=== PATIENT | male | born 1955 | race Caucasian/White ===

== ENCOUNTER → 2017-03-23 | Outpatient (CLI) | payer OTHER ==
[~2017-03-23] MED LIST: LEVO25TA PO; NAPR250T2 PO; VENL1CAP92 PO
[2017-03-23 18:11] LABS: ALT/SGPT 22 U/L (12-78); BLOOD UREA NITROGEN 15 mg/dl (7-18); BUN/CREATININE RATIO 14.7 (10-20); CALCIUM 8.6 mg/dl (8.5-10.1); CARBON DIOXIDE 26 mmol/L (21-32); CHLORIDE 107 mmol/L (98-107); CHOLESTEROL 134 mg/dl (0-200); GLUCOSE 88 mg/dl (70-99); POTASSIUM 4.2 mmol/L (3.5-5.1); SODIUM 139 mmol/L (136-145)
[2017-03-23 18:22] LABS: ALKALINE PHOSPHATASE 89 U/L (45-117); AST/SGOT 20 U/L (15-37); HDL CHOLESTEROL 44 mg/dl; LDL CHOLESTEROL CALCULATED 51 mg/dl; TRIGLYCERIDES 195 mg/dl (0-150); VERY LOW DENSITY LIPOPROT CALC 39 mg/dl
== END | disposition home or self-care (01) ==
LOC: C.LABPBG 15:56
PROVIDERS: ATTEND Physician Assistant
DX: Z00.00 Encounter for general adult medical examination without abnormal findings (principal); E03.9 Hypothyroidism, unspecified; M10.9 Gout, unspecified

== ENCOUNTER → 2017-11-08 | Day surgery (SDC) | payer OTHER ==
[2017-09-20 11:59] VITALS: Ht 182.9 cm; Wt 104.5 kg
[~2017-11-08] VITALS: Ht 182.9 cm; Wt 104.5 kg
[~2017-11-08] MED LIST changes: +ASCA500 PO; +BENZ100C84 PO; +BRIMONIDINE TARTRATE 0.2% 5ML OP SCH; +BRIMONIDINE TARTRATE 0.2% 5ML OPR SCH; +CHOL1000 PO; +GLAUCOMA EYE DROPS OPR; +GLUCTAB7 PO; -NAPR250T2 PO; +PILOCARPINE HCL 2% OP SOLN 15 ML BTL OPR SCH; +PROPARACAINE 0.5% OP SOLN PER DROP CHARGE OPR SCH; +PrednisoLONE ACET 1% OP SUSP 5 ML BTL OP SCH; -VENL1CAP92 PO
[2017-11-08 11:00] VITALS: BP 106/91; PULSE 62; O2SAT 97
--- NOTE | 2017-11-08 11:09 | Discharge Instructions-[facility] ---
Discharge Instructions Date of Service Nov 08, 2017. Visit Reason for Visit: Glaucoma Right Eye Discharge Discharge Diagnosis / Problem: glaucoma Discharge Goals Goal(s): Improve disease control Activity Recommendations Activity Limitations: per Instructions/Follow-up section Anesthesia . Post Anesthesia Instructions: If you have had General Anesthesia or IV Sedation: * Do not drive today. * Resume driving when surgeon permits. * Do not make important decisions or sign legal documents today. * Call surgeon for: 1. Temperature elevations greater than 101 degrees F. 2. Uncontrollable pain. 3. Excessive bleeding. 4. Persistent nausea and vomiting. 5. Medication intolerance (nausea, vomiting or rash). * For nausea and vomiting use only clear liquids such as: tea, soda, bouillon until nausea subsides, then gradually increase diet as tolerated. * If you have any concerns or questions, call your surgeon's office. If physician is unavailable and it is an emergency, call 911 or go to the nearest emergency room. . Instructions / Follow-Up Instructions / Follow-Up ACTIVITY RECOMMENDATIONS: * No limitations RETURN TO SCHOOL/WORK: * No limitations DIET: * No limitations MEDICATIONS: Resume previous medications unless instructed otherwise by your surgeon. * Please use Prednisolone acetate drops prescription given to you at your office appointment as follows: 1 drop in effected eye 4 times a day for 5 days. Or if Durezol then take 2 times a day for 5 days. * Continue all glaucoma drops as usual with no interruption to either eye. SPECIAL CARE INSTRUCTIONS: Call your doctor at with any concerns or problems. FOLLOW UP VISIT: Follow-up with Dr Canas in 1 hour. Diet Recommendations Home Diet: resume previous diet Pending Studies Studies pending at discharge: no Medical Emergencies . Who to Call and When: Medical Emergencies: If at any time you feel your situation is an emergency, please call 911 immediately. . Non-Emergent Contact Non-Emergency issues call your: [employer] . . "Provider Documentation" section prepared by Singh Canas. .
--- NOTE | 2017-11-08 11:10 | [facility] Operative Report ---
Operative Report Date of Service Nov 08, 2017. Operative Report Diagnosis: Glaucoma, right eye Procedure: SLT superior 180 degrees, 1.2-1.3 mj, 74 spots Complications: none I attest to the content of the Intraoperative Record and any orders documented therein. Any exceptions are noted below.
== END | disposition home or self-care (01) ==
LOC: X.SURG 09:31
PROVIDERS: ATTEND Ophthalmology
DX: H40.1110 Primary open-angle glaucoma, right eye, stage unspecified (principal)

== ENCOUNTER → 2017-11-08 | Outpatient (CLI) | payer OTHER ==
[~2017-11-08] MED LIST changes: -BRIMONIDINE TARTRATE 0.2% 5ML OP SCH; -BRIMONIDINE TARTRATE 0.2% 5ML OPR SCH; -PILOCARPINE HCL 2% OP SOLN 15 ML BTL OPR SCH; -PROPARACAINE 0.5% OP SOLN PER DROP CHARGE OPR SCH; -PrednisoLONE ACET 1% OP SUSP 5 ML BTL OP SCH
[2017-11-08 17:34] LABS: ALBUMIN 3.4 gm/dl (3.4-5.0); ALT/SGPT 28 U/L (12-78); AST/SGOT 20 U/L (15-37); BLOOD UREA NITROGEN 13 mg/dl (7-18); CALCIUM 8.4 mg/dl (8.5-10.1); CARBON DIOXIDE 28 mmol/L (21-32); CREATININE 1.16 mg/dl (0.60-1.40); GLUCOSE 86 mg/dl (70-99); SODIUM 139 mmol/L (136-145)
[2017-11-08 17:44] LABS: TOTAL PROTEIN 7.2 gm/dl (6.4-8.2)
[2017-11-08 17:45] LABS: ALKALINE PHOSPHATASE 81 U/L (45-117)
== END | disposition home or self-care (01) ==
LOC: C.LABPBG 14:44
PROVIDERS: ATTEND Physician Assistant
DX: Z00.00 Encounter for general adult medical examination without abnormal findings (principal); E03.9 Hypothyroidism, unspecified